=== PATIENT | male | born 1985 | race Caucasian/White ===

== ENCOUNTER 2016-09-21 22:20 | Emergency (ER) | payer SELFPAY ==
--- NOTE | 2016-09-21 22:32 | EDM.PDOC ---
ED HPI GENERAL MEDICAL PROBLEM - General Chief Complaint: Chest Pain Stated Complaint: CHEST PAIN Time Seen by Provider: 09/21/16 22:31 Source of Information: Reports: Patient - History of Present Illness INITIAL COMMENTS - FREE TEXT/NARRATIVE: HISTORY AND PHYSICAL: History of present illness: [] Patient presents with epigastric pain after eating hamburger helper, rated pain 3/10 not associated with diaphoresis or shortness breath no radiation to arm neck or jaw, episode lasted for approximately 15 minutes He does have significant family history with IA in his father at 18 years of age He is had a cardiac stress test within the last 3-4 years which was negative At current she is pain-free zero of 10 no fever nausea vomiting diarrhea constipation chest pain shortness breath headache dizziness palpitation no bowel or urine symptoms Review of systems: As per history of present illness and below otherwise all systems reviewed and negative. Past medical history: As per history of present illness and as reviewed below otherwise noncontributory. Surgical history: As per history of present illness and as reviewed below otherwise noncontributory. Social history: No reported history of drug or alcohol abuse. Family history: As per history of present illness and as reviewed below otherwise noncontributory. Physical exam: HEENT: Atraumatic, normocephalic, pupils reactive, negative for conjunctival pallor or scleral icterus, mucous membranes moist, throat clear, neck supple, nontender, trachea midline. Lungs: Clear to auscultation, breath sounds equal bilaterally, chest nontender. Heart: S1S2, regular, negative for clicks, rubs, or JVD. Abdomen: Soft, nondistended, nontender. Negative for masses or hepatosplenomegaly. Negative for costovertebral tenderness. Pelvis: Stable nontender. Genitourinary: Deferred. Rectal: Deferred. Extremities: Atraumatic, negative for cords or calf pain. Neurovascular unremarkable. Neuro: Awake, alert, oriented. Cranial nerves II through XII unremarkable. Cerebellum unremarkable. Motor and sensory unremarkable throughout. Exam nonfocal. Diagnostics: [] Lab as below EKG Chest one view Therapeutics: [] None Patient offered admission for observation and telemetry follow enzymes he refused Impression: [] Chest pain resolved by time of arrival Definitive disposition and diagnosis as appropriate pending reevaluation and review of above. chest Pain Score (Numeric/FACES): 7 - Related Data Allergies Allergy/AdvReac Type Severity Reaction Status Date / Time No Known Allergies Allergy Verified 09/21/16 22:27 Home Meds: Home Meds . [No Known Home Meds] 09/21/16 [History] Past Medical History - Past Health History Medical/Surgical History: Denies Medical/Surgical History Social & Family History - Tobacco Use Years of Tobacco use: 10 - Alcohol Use Days Per Week of Alcohol Use: 0 - Recreational Drug Use Recreational Drug Use: No ED ROS GENERAL - Review of Systems Review Of Systems: ROS reveals no pertinent complaints other than HPI. ED EXAM, GENERAL - Physical Exam Exam: See Below Course - Vital Signs Last Recorded V/S: Last Vital Signs Temp 36.2 C 09/21/16 22:28 Pulse 92 09/21/16 22:28 Resp 16 09/21/16 22:28 BP 143/90 H 09/21/16 22:28 Pulse Ox 96 09/21/16 22:28 - Orders/Labs/Meds Orders: Active Orders 24 hr Category Date Time Status EKG 12 Lead [EKG Documentation Completion] [RC] STAT Care 09/21/16 22:18 Ordered Chest 1V Frontal [CR] Stat Exams 09/21/16 22:31 Taken Labs: Laboratory Tests 09/21/16 09/21/16 09/21/16 Range/Units 22:39 22:39 22:39 WBC 10.33 (4.0-11.0) K/uL RBC 5.38 (4.50-5.90) M/uL Hgb 16.2 (13.0-17.0) g/dL Hct 47.1 (38.0-50.0) % MCV 87.5 (80.0-98.0) fL MCH 30.1 (27.0-32.0) pg MCHC 34.4 (31.0-37.0) g/dL RDW Std Deviation 43.3 (28.0-62.0) fl RDW Coeff of Ricarda 14 (11.0-15.0) % Plt Count 268 (150-400) K/uL MPV 8.80 (7.40-12.00) fL Neut % (Auto) 49.3 (48.0-80.0) % Lymph % (Auto) 41.0 H (16.0-40.0) % [place] % (Auto) 7.2 (0.0-15.0) % Eos % (Auto) 1.7 (0.0-7.0) % Baso % (Auto) 0.8 (0.0-1.5) % Neut # (Auto) 5.1 (1.4-5.7) K/uL Lymph # (Auto) 4.2 H (0.6-2.4) K/uL [place] # (Auto) 0.7 (0.0-0.8) K/uL Eos # (Auto) 0.2 (0.0-0.7) K/uL Baso # (Auto) 0.1 (0.0-0.1) K/uL Nucleated RBC % 0.0 /100WBC Nucleated RBCs # 0 K/uL Sodium 142 (136-146) mmol/L Potassium 4.1 (3.5-5.1) mmol/L Chloride 109 (98-110) mmol/L Carbon Dioxide 24 (21-31) mmol/L BUN 16 (6.0-23.0) mg/dL Creatinine 1.2 (0.6-1.5) mg/dL Est Cr Clr Drug Dosing 98.80 mL/min Estimated GFR (MDRD) > 60.0 ml/min Glucose 108 (60-110) mg/dL Calcium 9.0 (8.8-10.8) mg/dL Total Bilirubin 0.3 (0.1-1.5) mg/dL AST 19 (5-40) IU/L ALT 29 (8-54) IU/L Alkaline Phosphatase 99 (40-150) Troponin I < 0.10 (0.0-0.29) NG/ML Total Protein 7.0 (6.0-8.0) g/dL Albumin 4.5 (3.5-5.0) g/dL Globulin 2.5 (2.0-3.5) g/dL Albumin/Globulin Ratio 1.8 (1.3-2.8) Amylase 49 (10-90) U/L Lipase 23 (7-80) U/L Departure - Departure Time of Disposition: 23:26 Disposition: Home, Self-Care 01 Condition: good Clinical Impression: Atypical chest pain - Discharge Information Referrals: PCP,None [Primary Care Provider] - Forms: ED Department Discharge Additional Instructions: Return if symptoms persist or worsen Followup with primary care and establish with in 2 weeks [facility] - Primary [facility] [address] [place] [id number] The following information is given to patients seen in the emergency department who are being discharged to home. This information is to outline your options for follow-up care. We provide all patients seen in our emergency department with a follow-up referral. The need for follow-up, as well as the timing and circumstances, are variable depending upon the specifics of your emergency department visit. If you don't have a primary care physician on staff, we will provide you with a referral. We always advise you to contact your personal physician following an emergency department visit to inform them of the circumstance of the visit and for follow-up with them and/or the need for any referrals to a consulting specialist. The emergency department will also refer you to a specialist when appropriate. This referral assures that you have the opportunity for follow-up care with a specialist. All of these measure are taken in an effort to provide you with optimal care, which includes your follow-up. Under all circumstances we always encourage you to contact your private physician who remains a resource for coordinating your care. When calling for follow-up care, please make the office aware that this follow-up is from your recent emergency room visit. If for any reason you are refused follow-up, please contact the [facility] emergency department at and asked to speak to the emergency department charge nurse. - My Orders Last 24 Hours: My Active Orders 09/21/16 22:18 EKG 12 Lead [EKG Documentation Completion] [RC] STAT 09/21/16 22:31 Chest 1V Frontal [CR] Stat - Assessment/Plan Last 24 Hours: My Active Orders 09/21/16 22:18 EKG 12 Lead [EKG Documentation Completion] [RC] STAT 09/21/16 22:31 Chest 1V Frontal [CR] Stat
[2016-09-21 23:07] LABS: CHLORIDE,CL 109 mmol/L (98-110); SODIUM,NA 142 mmol/L (136-146)
[2016-09-21 23:38] VITALS: BP 140/84
--- NOTE | 2016-09-22 10:46 | CR ---
EXAM DATE: 09/21/16 PATIENT'S AGE: 31 Patient: REGGIE WELDON Facility: [place], [place] Site . Site : [id number] Study: XRay Chest [id number] 10:57:42 PM Ordering Physician: Doctor Mullins Final Report: INDICATION: CHEST PAIN TECHNIQUE: Chest 1 view COMPARISON: None FINDINGS: Cardiovascular and mediastinum: Heart size and vasculature are normal in caliber and appearance. Mediastinum is within normal limits. Lungs and pleural space: No focal consolidation. No sign of pleural effusion. No pneumothorax. Bones and soft tissues: No significant findings. IMPRESSION: No acute cardiopulmonary disease. Dictated by Josemanuel Jones MD @ 09/21/2016 11:16:07 PM Dictated by: Josemanuel Jones MD @ 09/21/2016 23:16:14 (Electronic Signature) Report Signed by Proxy. [facility]
== END 2016-09-21 23:36 | disposition home or self-care (01) ==
LOC: MW.ED 22:20
DX: R07.89 Other chest pain (principal)
CPT/HCPCS: 36415; 71010; 71010-26; 80053; 82150; 83690; 84484; 85025; 93005; 99283; 99285-25

== ENCOUNTER 2017-02-13 09:44 | Emergency (ER) | payer BC ==
[2017-02-13] MEDS ORDERED: HYDROmorphone 1 MG/ML Syringe IV ONE ×2 (10:08→11:05)
[2017-02-13] MEDS ORDERED: Sodium Chloride 0.9% 1,000 ML IV ONE (10:10)
--- NOTE | 2017-02-13 10:17 | EDM.PDOC ---
ED HPI GENERAL MEDICAL PROBLEM - General Chief Complaint: Back Pain or Injury Stated Complaint: BACK PAIN Time Seen by Provider: 02/13/17 09:53 Source of Information: Reports: Patient History Limitations: Reports: No Limitations - History of Present Illness INITIAL COMMENTS - FREE TEXT/NARRATIVE: HISTORY AND PHYSICAL: History of present illness: Patient is a 31-year-old male who presents to the emergency room with complaints of chronic back pain. He states he has had chronic back pain for several years. He denies any injury or trauma to be the causative factor for his back pain. He states he has doctored with multiple providers as he has these flareups. Did start to see Dr. Pola Lovelace at [facility]. An MRI was done on 01/24/17 which showed diffuse disc bulging at L4-L5 and L5-S1. He has no appointment on at [place] for steroid injection. He is currently taking diclofenac and gabapentin for pain management. States since his MRI and starting these medications his pain has not improved. Denies any new injury or trauma. Denies any urinary or fecal incontinence. Denies any chest pain, shortness of breath, fever or chills. Review of systems: As per history of present illness and below otherwise all systems reviewed and negative. Past medical history: As per history of present illness and as reviewed below otherwise noncontributory. Surgical history: As per history of present illness and as reviewed below otherwise noncontributory. Social history: No reported history of drug or alcohol abuse. Family history: As per history of present illness and as reviewed below otherwise noncontributory. Physical exam: Gen.: Nontoxic-appearing 31-year-old male. Able to speak in full sentences without shortness of breath. Alert and oriented. HEENT: Atraumatic, normocephalic, pupils reactive, negative for conjunctival pallor or scleral icterus, mucous membranes moist, throat clear, neck supple, nontender, trachea midline. Lungs: Clear to auscultation, breath sounds equal bilaterally, chest nontender. Heart: S1S2, regular, negative for clicks, rubs, or JVD. Abdomen: Soft, nondistended, nontender. Negative for masses or hepatosplenomegaly. Negative for costovertebral tenderness. Pelvis: Stable nontender. Genitourinary: Deferred. Rectal: Deferred. Back: When palpating the C-spine and back there is no obvious deformity, crepitus, step-offs. There is mild tenderness in the lumbar area with muscular tension noted. Patient is able to walk on his heels and tiptoes. Extremities: Atraumatic, negative for cords or calf pain. Neurovascular unremarkable. Neuro: Awake, alert, oriented. Cranial nerves II through XII unremarkable. Cerebellum unremarkable. Motor and sensory unremarkable throughout. Exam nonfocal. Due to the patient having a recent MRI and no new injury since this time, there is no need for additional imaging. Patient is currently taking gabapentin and diclofenac for pain management. He is aware that I am only able to provide a limited amount of pain management until his follow-up appointment on at [facility] for steroid injection. We will attempt to manage the pain through some IV medications and prescription for home. Patient voices understanding and is agreeable to plan of care. Denies any further questions at this time. Since receiving the IV medications, patient states his pain is more manageable. Agreeable for discharge and close follow-up with his primary care provider, Dr. Pola Lovelace. He will keep his follow-up appointment at [facility] for steroid injection. And take his medications as prescribed. Significant other is at bedside to drive patient home. Diagnostics: None Therapeutics: Dilaudid, Valium, IV fluid Impression: Lumbar back pain Plan: 1. Please take your medications as prescribed. Do not take these while driving or needing to be functioning at work. 2. Keep your follow-up appointment at [facility] for your steroid injection. 3. If her symptoms should worsen or new symptoms develop, please return to the emergency room as we discussed. Definitive disposition and diagnosis as appropriate pending reevaluation and review of above. Duration: Chronic (8+ years) Location: Reports: Back Left Lower Back Pain Score (Numeric/FACES): 9 - Related Data Allergies Allergy/AdvReac Type Severity Reaction Status Date / Time No Known Allergies Allergy Verified 02/13/17 10:04 Home Meds: Home Meds Diclofenac Sodium [Voltaren] 75 mg PO BID 02/13/17 [History] Gabapentin [Neurontin] 300 mg PO TID 02/13/17 [History] Past Medical History - Past Health History Medical/Surgical History: Denies Medical/Surgical History Musculoskeletal History: Reports: Other (See Below) Other Musculoskeletal History: slip disc - Infectious Disease History Infectious Disease History: Reports: Chicken Pox Social & Family History - Family History Family Medical History: Noncontributory Cardiac: Reports: CAD, Other (See Below) Other Cardiac Family History: father - Tobacco Use Smoking Status *Q: Current Every Day Smoker Years of Tobacco use: 10 Packs/Tins Daily: 1 - Caffeine Use Caffeine Use: Reports: Coffee, Soda Caffeine Use Comment: 1 cup daily - Alcohol Use Days Per Week of Alcohol Use: 0 - Recreational Drug Use Recreational Drug Use: No ED ROS GENERAL - Review of Systems Review Of Systems: ROS reveals no pertinent complaints other than HPI. Constitutional: Denies: Fever, Chills, Weakness Respiratory: Denies: Shortness of Breath Cardiovascular: Denies: Chest Pain GI/Abdominal: Denies: Abdominal Pain, Diarrhea, Nausea, Vomiting : Denies: Dysuria, Flank Pain Musculoskeletal: Reports: Back Pain Skin: Denies: Jaundice, Bruising, Rash Neurological: Reports: Numbness (Chronic numbness and tingling, years), Tingling. Denies: Confusion, Dizziness, Headache Hematologic/Lymphatic: Denies: Anemia, Easy Bleeding ED EXAM,LOWER BACK PAIN/INJURY - Physical Exam Exam: See Below (See dictation) Course - Vital Signs Last Recorded V/S: Last Vital Signs Temp 36.3 C 02/13/17 11:13 Pulse 88 02/13/17 11:13 Resp 18 02/13/17 11:13 BP 151/94 H 02/13/17 11:13 Pulse Ox 97 02/13/17 11:13 - Orders/Labs/Meds Meds: Medications Discontinued Medications Generic Name Dose Route Start Last Admin Trade Name Kathy PRN Reason Stop Dose Admin Hydrocodone Bitart/Acetaminophen 1 tab 02/13/17 11:31 Ida 325-5 Mg PO 02/13/17 11:32 ONETIME ONE Diazepam 5 mg 02/13/17 10:09 02/13/17 10:32 Valium IVPUSH 02/13/17 10:10 5 mg ONETIME ONE Administration Hydromorphone HCl 1 mg 02/13/17 10:08 02/13/17 10:31 Dilaudid IV 02/13/17 10:09 1 mg ONETIME ONE Administration Hydromorphone HCl 1 mg 02/13/17 11:05 02/13/17 11:13 Dilaudid IV 02/13/17 11:06 1 mg ONETIME ONE Administration Sodium Chloride 1,000 mls @ 999 mls/hr 02/13/17 10:10 02/13/17 10:31 Normal Saline IV 02/13/17 11:10 999 mls/hr STAT ONE Administration Departure - Departure Time of Disposition: 11:02 Disposition: Home, Self-Care 01 Clinical Impression: Lumbar back pain Qualifiers: Chronicity: chronic Back pain laterality: midline Sciatica presence: without sciatica Qualified Code(s): M54.5 - Low back pain - Discharge Information Referrals: Pola Horton MD [Primary Care Provider] - Forms: ED Department Discharge Additional Instructions: My general discharge The following information is given to patients seen in the emergency department who are being discharged to home. This information is to outline your options for follow-up care. We provide all patients seen in our emergency department with a follow-up referral. The need for follow-up, as well as the timing and circumstances, are variable depending upon the specifics of your emergency department visit. If you don't have a primary care physician on staff, we will provide you with a referral. We always advise you to contact your personal physician following an emergency department visit to inform them of the circumstance of the visit and for follow-up with them and/or the need for any referrals to a consulting specialist. The emergency department will also refer you to a specialist when appropriate. This referral assures that you have the opportunity for follow-up care with a specialist. All of these measure are taken in an effort to provide you with optimal care, which includes your follow-up. Under all circumstances we always encourage you to contact your private physician who remains a resource for coordinating your care. When calling for follow-up care, please make the office aware that this follow-up is from your recent emergency room visit. If for any reason you are refused follow-up, please contact the [facility] Emergency Department at and asked to speak to the emergency department charge nurse. [facility] Specialty Care - Pain Management [address] [place] [id number] 1. Please take your medications as prescribed. Do not take these while driving or needing to be functioning at work. 2. Keep your follow-up appointment at [facility] for your steroid injection. Please ask Dr. Horton about a referral to Dr. Malhotra for pain management. 3. If your symptoms should worsen or new symptoms develop, please return to the emergency room as we discussed.
[2017-02-13] MEDS ORDERED: Acetaminophen/HYDROcodone 325-5 MG Tab PO ONE (11:31)
[2017-02-13 11:50] VITALS: BP 157/86
== END 2017-02-13 11:56 | disposition home or self-care (01) ==
LOC: MW.ED 09:44
DX: M54.5 Low back pain (principal); F17.210 Nicotine dependence, cigarettes, uncomplicated
CPT/HCPCS: 96361; 96374; 96375; 96376; 99283; A9270; J1170; J3360; J7040

== ENCOUNTER 2018-07-19 15:16 | Emergency (ER) | payer BC ==
--- NOTE | 2018-07-19 15:27 | EDM.PDOC ---
ED HPI GENERAL MEDICAL PROBLEM - General Chief Complaint: General Stated Complaint: heartburn and headache Time Seen by Provider: 07/19/18 15:17 Source of Information: Reports: Patient History Limitations: Reports: No Limitations - History of Present Illness INITIAL COMMENTS - FREE TEXT/NARRATIVE: HISTORY AND PHYSICAL: History of present illness: Patient is a 32-year-old male who presents to the emergency room with complaints of a posterior scalp migraine headache with light and noise sensitivity. He states he has used multiple [id number] products without any relief. He also has a sensation of heartburn which starts at the esophagus and goes down to the upper epigastrium. Has been using Maalox and Tums without any relief as well. Patient denies any fever, chills, change in vision, syncope or near syncope. Denies any chest pain, shortness of breath or cough. Denies any abdominal pain, nausea, vomiting, diarrhea, constipation or dysuria. Has not noted any blood in urine or stool. Patient has been eating and drinking appropriately. Review of systems: As per history of present illness and below otherwise all systems reviewed and negative. Past medical history: As per history of present illness and as reviewed below otherwise noncontributory. Surgical history: As per history of present illness and as reviewed below otherwise noncontributory. Social history: See social history for further information Family history: As per history of present illness and as reviewed below otherwise noncontributory. Physical exam: General: Well-developed and well-nourished 32-year-old male. Alert and oriented. Nontoxic appearing and in no acute distress. HEENT: Atraumatic, normocephalic, pupils equal and reactive bilaterally, negative for conjunctival pallor or scleral icterus, mucous membranes moist, TMs normal bilaterally, throat clear, neck supple, nontender, trachea midline. No drooling or trismus noted. No meningeal signs. No hot potato voice noted. Lungs: Clear to auscultation, breath sounds equal bilaterally, chest nontender. Heart: S1S2, regular rate and rhythm without overt murmur Abdomen: Soft, nondistended, nontender. Negative for masses or hepatosplenomegaly. Negative for costovertebral tenderness. Pelvis: Stable nontender. Genitourinary: Deferred. Rectal: Deferred. Skin: Intact, warm, dry. No lesions or rashes noted. Extremities: Atraumatic, moves all per self. Neurovascular unremarkable. Neuro: Awake, alert, oriented. Cranial nerves II through XII unremarkable. Cerebellum unremarkable. Motor and sensory unremarkable throughout. Exam nonfocal. Notes: Patient has an allergy to Toradol. His headache does sound like a tension migraine headache. We'll give him IV fluid and medication with education. Routine lab work will be done. Patient does have some improvement with the medications. Lab work is unremarkable. Supportive care measures were reviewed and discussed. Voices understanding and is agreeable to plan of care. Denies any further questions or concerns at this time. Diagnostics: CBC, CMP, H.pylori Therapeutics: IV fluid, Zofran, Toradol, Benadryl, Reglan Prescription: Omeprazole (#14) Impression: Tension Headache GERD Plan: 1. Please take the remainder of the day to rest in a dark quiet room. No driving for the rest of the evening. 2. May use Tylenol and/or ibuprofen as needed for pain management. Take the omeprazole once daily over the next 2 weeks. 3. Please follow-up with your primary care provider as we discussed. Return to the ED as needed and as discussed. Definitive disposition and diagnosis as appropriate pending reevaluation and review of above. headache Pain Score (Numeric/FACES): 9 heartburn Pain Score (Numeric/FACES): 8 - Related Data Allergies Allergy/AdvReac Type Severity Reaction Status Date / Time ketorolac Allergy Seizure Verified 07/19/18 15:57 Home Meds: Home Meds . [No Known Home Meds] 07/19/18 [History] Past Medical History - Past Health History Medical/Surgical History: Denies Medical/Surgical History Musculoskeletal History: Reports: Other (See Below) Other Musculoskeletal History: slip disc - Infectious Disease History Infectious Disease History: Reports: Chicken Pox Social & Family History - Family History Family Medical History: Noncontributory Cardiac: Reports: CAD, Other (See Below) Other Cardiac Family History: father - Caffeine Use Caffeine Use: Reports: Coffee, Soda Caffeine Use Comment: 1 cup daily ED ROS GENERAL - Review of Systems Review Of Systems: ROS reveals no pertinent complaints other than HPI. ED EXAM, GENERAL - Physical Exam Exam: See Below (See dictation) Course - Vital Signs Last Recorded V/S: Last Vital Signs Temp 96.9 F 07/19/18 15:26 Pulse 89 03/28/19 15:26 Resp 20 07/19/18 15:26 BP 149/97 H 07/19/18 15:26 Pulse Ox 97 07/19/18 15:26 - Orders/Labs/Meds Labs: Laboratory Tests 07/19/18 07/19/18 07/19/18 Range/Units 16:22 16:22 16:22 WBC 11.26 H (4.0-11.0) K/uL RBC 5.33 (4.50-5.90) M/uL Hgb 16.3 (13.0-17.0) g/dL Hct 46.7 (38.0-50.0) % MCV 87.6 (80.0-98.0) fL MCH 30.6 (27.0-32.0) pg MCHC 34.9 (31.0-37.0) g/dL RDW Std Deviation 44.6 (28.0-62.0) fl RDW Coeff of Ricarda 14 (11.0-15.0) % Plt Count 250 (150-400) K/uL MPV 8.90 (7.40-12.00) fL Neut % (Auto) 63.1 (48.0-80.0) % Lymph % (Auto) 26.9 (16.0-40.0) % Throckmorton % (Auto) 7.7 (0.0-15.0) % Eos % (Auto) 1.8 (0.0-7.0) % Baso % (Auto) 0.5 (0.0-1.5) % Neut # (Auto) 7.1 H (1.4-5.7) K/uL Lymph # (Auto) 3.0 H (0.6-2.4) K/uL Throckmorton # (Auto) 0.9 H (0.0-0.8) K/uL Eos # (Auto) 0.2 (0.0-0.7) K/uL Baso # (Auto) 0.1 (0.0-0.1) K/uL Nucleated RBC % 0.0 /100WBC Nucleated RBCs # 0 K/uL Sodium 142 (136-148) mmol/L Potassium 4.0 (3.5-5.1) mmol/L Chloride 106 (98-107) mmol/L Carbon Dioxide 28.7 (21.0-32.0) mmol/L BUN 12 (7.0-18.0) mg/dL Creatinine 0.9 (0.8-1.3) mg/dL Est Cr Clr Drug Dosing 130.53 mL/min Estimated GFR (MDRD) > 60.0 ml/min Glucose 103 (74-106) mg/dL Calcium 8.8 (8.5-10.1) mg/dL Total Bilirubin 0.2 (0.2-1.0) mg/dL AST 21 (15-37) IU/L ALT 48 (14-63) IU/L Alkaline Phosphatase 95 (46-116) U/L Total Protein 6.4 (6.4-8.2) g/dL Albumin 3.6 (3.4-5.0) g/dL Globulin 2.8 (2.6-4.0) g/dL Albumin/Globulin Ratio 1.3 (0.9-1.6) H. pylori IgG Antibody NEGATIVE (NEG) Meds: Medications Discontinued Medications Generic Name Dose Route Start Last Admin Trade Name Freq PRN Reason Stop Dose Admin Al Hydroxide/Mg Hydroxide 15 0 ml 07/19/18 15:38 07/19/18 16:00 ml/ Lidocaine HCl 5 ml PO 07/19/18 15:39 20 each ONETIME ONE Administration Diphenhydramine HCl 50 mg 07/19/18 15:33 07/19/18 16:08 Benadryl IVPUSH 07/19/18 15:34 Not Given ONETIME ONE Sodium Chloride 1,000 mls @ 999 mls/hr 07/19/18 15:33 07/19/18 16:02 Normal Saline IV 07/19/18 16:33 999 mls/hr STAT ONE Administration Ketorolac Tromethamine 30 mg 07/19/18 15:33 07/19/18 16:08 Toradol IVPUSH 07/19/18 15:34 Not Given ONETIME ONE Lorazepam 1 mg 07/19/18 15:59 07/19/18 16:06 Ativan IVPUSH 07/19/18 16:00 1 mg ONETIME ONE Administration Metoclopramide HCl 10 mg 07/19/18 15:33 07/19/18 16:08 Reglan IV 07/19/18 15:34 Not Given ONETIME ONE Ondansetron HCl 4 mg 07/19/18 15:33 07/19/18 16:06 Zofran IVPUSH 07/19/18 15:34 4 mg ONETIME ONE Administration Departure - Departure Time of Disposition: 16:58 Disposition: Home, Self-Care 01 Clinical Impression: Tension headache GERD (gastroesophageal reflux disease) Qualifiers: Esophagitis presence: esophagitis presence not specified Qualified Code(s): K21.9 - Gastro-esophageal reflux disease without esophagitis - Discharge Information Instructions: Tension Headache, Adult, [id number], Gastroesophageal Reflux Disease, Adult, [id number] Referrals: PCP,Unknown [Primary Care Provider] - Forms: ED Department Discharge Additional Instructions: The following information is given to patients seen in the emergency department who are being discharged to home. This information is to outline your options for follow-up care. We provide all patients seen in our emergency department with a follow-up referral. The need for follow-up, as well as the timing and circumstances, are variable depending upon the specifics of your emergency department visit. If you don't have a primary care physician on staff, we will provide you with a referral. We always advise you to contact your personal physician following an emergency department visit to inform them of the circumstance of the visit and for follow-up with them and/or the need for any referrals to a consulting specialist. The emergency department will also refer you to a specialist when appropriate. This referral assures that you have the opportunity for follow-up care with a specialist. All of these measure are taken in an effort to provide you with optimal care, which includes your follow-up. Under all circumstances we always encourage you to contact your private physician who remains a resource for coordinating your care. When calling for follow-up care, please make the office aware that this follow-up is from your recent emergency room visit. If for any reason you are refused follow-up, please contact the [facility] Emergency Department at and asked to speak to the emergency department charge nurse. [facility] [address] [place] [id number] [address] [place] [address] [place] [address] 1. Please take the remainder of the day to rest in a dark quiet room. No driving for the rest of the evening. 2. May use Tylenol and/or ibuprofen as needed for pain management. Take the omeprazole once daily over the next 2 weeks. 3. Please follow-up with your primary care provider as we discussed. Return to the ED as needed and as discussed.
[2018-07-19 15:28] VITALS: BP 149/97
[2018-07-19] MEDS ORDERED: Ketorolac 30 MG/ML SDV IVPUSH ONE (15:33)
[2018-07-19] MEDS ORDERED: Sodium Chloride 0.9% 1,000 ML IV ONE (15:33)
[2018-07-19] MEDS ORDERED: Ondansetron 4 MG/2 ML SDV IVPUSH ONE (15:33)
[2018-07-19] MEDS ORDERED: Metoclopramide 10 MG/2 ML SDV IV ONE (15:33)
[2018-07-19] MEDS ORDERED: diphenhydrAMINE 50 MG/ML SDV IVPUSH ONE (15:33)
[2018-07-19] MEDS ORDERED: Alum Hydrox/Mag Hydrox/Simeth 15 ML, Lidocaine 2% 5 ML PO ONE ×2 (15:38)
[2018-07-19] MEDS ORDERED: LORazepam 2 MG/ML SDV IVPUSH ONE (15:59)
[2018-07-19 16:51] LABS: CHLORIDE,CL 106 mmol/L (98-107); SODIUM,NA 142 mmol/L (136-148)
== END 2018-07-19 17:10 | disposition home or self-care (01) ==
LOC: MW.ED 15:16
DX: G44.209 Tension-type headache, unspecified, not intractable (principal); K21.9 Gastro-esophageal reflux disease without esophagitis; Z88.6 Allergy status to analgesic agent
CPT/HCPCS: 36415; 80053; 85025; 86677; 96361; 96374; 96375; 99284; A9270; J2060; J2405; J7040

== ENCOUNTER 2018-07-21 00:45 | Emergency (ER) | payer BC ==
--- NOTE | 2018-07-21 00:54 | EDM.PDOC ---
ED HPI GENERAL MEDICAL PROBLEM - General Chief Complaint: Chest Pain Stated Complaint: CHEST PAIN Time Seen by Provider: 07/21/18 00:52 - History of Present Illness INITIAL COMMENTS - FREE TEXT/NARRATIVE: HISTORY AND PHYSICAL: History of present illness: Patient 32-year-old white male was seen recently for chest discomfort and heartburn returns tonight with chest discomfort is no associated shortness of breath palpitations diaphoresis nausea vomiting or other complaints. Review of systems: As per history of present illness and below otherwise all systems reviewed and negative. Past medical history: As per history of present illness and as reviewed below otherwise noncontributory. Surgical history: As per history of present illness and as reviewed below otherwise noncontributory. Social history: No reported history of drug or alcohol abuse. Family history: As per history of present illness and as reviewed below otherwise noncontributory. Physical exam: HEENT: Atraumatic, normocephalic, pupils reactive, negative for conjunctival pallor or scleral icterus, mucous membranes moist, throat clear, neck supple, nontender, trachea midline. Lungs: Clear to auscultation, breath sounds equal bilaterally, chest nontender. Heart: S1S2, regular, negative for clicks, rubs, or JVD. Abdomen: Soft, nondistended, nontender. Negative for masses or hepatosplenomegaly. Negative for costovertebral tenderness. Pelvis: Stable nontender. Genitourinary: Deferred. Rectal: Deferred. Extremities: Atraumatic, negative for cords or calf pain. Neurovascular unremarkable. Neuro: Awake, alert, oriented. Cranial nerves II through XII unremarkable. Cerebellum unremarkable. Motor and sensory unremarkable throughout. Exam nonfocal. Diagnostics: EKG Therapeutics: None Impression: #1 atypical chest pain Definitive disposition and diagnosis as appropriate pending reevaluation and review of above. - Related Data Allergies Allergy/AdvReac Type Severity Reaction Status Date / Time ketorolac Allergy Seizure Verified 07/21/18 00:50 Home Meds: Home Meds . [No Known Home Meds] 07/19/18 [History] Past Medical History - Past Health History Medical/Surgical History: Denies Medical/Surgical History Musculoskeletal History: Reports: Other (See Below) Other Musculoskeletal History: slip disc - Infectious Disease History Infectious Disease History: Reports: Chicken Pox Social & Family History - Family History Family Medical History: Noncontributory Cardiac: Reports: CAD, Other (See Below) Other Cardiac Family History: father - Caffeine Use Caffeine Use: Reports: Coffee, Soda Caffeine Use Comment: 1 cup daily ED ROS GENERAL - Review of Systems Review Of Systems: ROS reveals no pertinent complaints other than HPI. ED EXAM, GENERAL - Physical Exam Exam: See Below (See dictation) Departure - Departure Time of Disposition: 00:53 Disposition: Home, Self-Care 01 Condition: Good Clinical Impression: Atypical chest pain - Discharge Information Referrals: PCP,None [Primary Care Provider] - Additional Instructions: The following information is given to patients seen in the emergency department who are being discharged to home. This information is to outline your options for follow-up care. We provide all patients seen in our emergency department with a follow-up referral. The need for follow-up, as well as the timing and circumstances, are variable depending upon the specifics of your emergency department visit. If you don't have a primary care physician on staff, we will provide you with a referral. We always advise you to contact your personal physician following an emergency department visit to inform them of the circumstance of the visit and for follow-up with them and/or the need for any referrals to a consulting specialist. The emergency department will also refer you to a specialist when appropriate. This referral assures that you have the opportunity for followup care with a specialist. All of these measure are taken in an effort to provide you with optimal care, which includes your followup. Under all circumstances we always encourage you to contact your private physician who remains a resource for coordinating your care. When calling for followup care, please make the office aware that this follow-up is from your recent emergency room visit. If for any reason you are refused follow-up, please contact the [facility] emergency department at and asked to speak to the emergency department charge nurse. Specialty Care - General Surgery Professional [facility] [address] [place] [address], [address] [place] [address] Primary Care [address] [place] [id number] Follow-up primary care in Gen. surgery as discussed
[2018-07-21] MEDS ORDERED: Alum Hydrox/Mag Hydrox/Simeth 15 ML, Lidocaine 2% 5 ML PO ONE ×2 (01:06)
[2018-07-21 01:24] VITALS: BP 142/97
== END 2018-07-21 01:20 | disposition home or self-care (01) ==
LOC: MW.ED 00:45
DX: R07.89 Other chest pain (principal)
CPT/HCPCS: 93005; 99284; A9270

== ENCOUNTER 2018-07-24 08:33 | Emergency (ER) | payer BC ==
[2018-07-24] MEDS ORDERED: Aspirin 81 MG Tab.Chew PO ONE (09:06)
[2018-07-24] MEDS ORDERED: Sodium Chloride 0.9% 2.5 ML Syringe FLUSH PRN (09:07)
[2018-07-24] MEDS ORDERED: Sodium Chloride 0.9% 10 ML Syringe FLUSH PRN (09:07)
--- NOTE | 2018-07-24 09:14 | EDM.PDOC ---
ED HPI GENERAL MEDICAL PROBLEM - General Chief Complaint: Cardiovascular Problem Stated Complaint: LAB RECHECK Time Seen by Provider: 07/24/18 08:40 Source of Information: Reports: Patient History Limitations: Reports: No Limitations - History of Present Illness INITIAL COMMENTS - FREE TEXT/NARRATIVE: History of present illness: []Patient presents this morning after following up with a primary care doctor for chest pain and was immediately sent to the emergency room. He does not have any chest pain, shortness of breath or epigastric pain at this time. Patient was seen on July 19 with epigastric pain chart stable. He was seen again on the with a normal EKG and went to [place] where he was admitted to the ER and had positive troponins. He declined admission and signed out AMA after the second positive troponin came back and admission was recommended. Patient has no discomfort at this time Review of systems: As per history of present illness and below otherwise all systems reviewed and negative. Past medical history: As per history of present illness and as reviewed below otherwise noncontributory. Surgical history: As per history of present illness and as reviewed below otherwise noncontributory. Social history: No reported history of drug or alcohol abuse. Family history: As per history of present illness and as reviewed below otherwise noncontributory. Physical exam: General: Well developed, well nourished in NAD HEENT: Atraumatic, normocephalic, pupils reactive, negative for conjunctival pallor or scleral icterus, mucous membranes moist, throat clear, neck supple, nontender, trachea midline. Lungs: Clear to auscultation, no rales or rhonchi breath sounds equal bilaterally, chest nontender. Heart: S1S2, regular, negative for clicks, rubs, or JVD. Abdomen: NABS, Soft, nondistended, nontender. Negative for masses or hepatosplenomegaly. Negative for costovertebral tenderness. Pelvis: Stable nontender. Genitourinary: Deferred. Rectal: Deferred. Extremities: Atraumatic, negative for cords or calf pain. Neurovascular unremarkable. Neuro: Awake, alert, oriented. Cranial nerves II through XII unremarkable. Cerebellum unremarkable. Motor and sensory unremarkable throughout. Exam nonfocal. Skin:warm and dry Diagnostics: EKG, CBC, chemistry, troponin, chest x-ray Therapeutics: Aspirin held because patient took 325 mg this morning, blood pressure and pulse stable, Plavix given by mouth ED Course: Stable 10:[address] Ivey in the emergency room at not except as patient if Dr. Daly recommend he return for admission and further workup. Impression: subacute RI Prescriptions: None Plan: Transfer to [facility] for admission by ground Definitive disposition and diagnosis as appropriate pending reevaluation and review of above. back Pain Score (Numeric/FACES): 2 - Related Data Allergies Allergy/AdvReac Type Severity Reaction Status Date / Time ketorolac Allergy Seizure Verified 07/24/18 08:39 Home Meds: Home Meds Aspirin 325 mg PO DAILY 07/24/18 [History] Metoprolol Tartrate [Lopressor] 25 mg PO Q12HR 07/24/18 [History] Varenicline Tartrate [Chantix] 1 mg PO DAILY 07/24/18 [History] Past Medical History - Past Health History Medical/Surgical History: Denies Medical/Surgical History Cardiovascular History: Reports: Hypertension Musculoskeletal History: Reports: Other (See Below) Other Musculoskeletal History: slip disc - Infectious Disease History Infectious Disease History: Reports: None - Past Surgical History HEENT Surgical History: Reports: Oral Surgery Social & Family History - Family History Family Medical History: Noncontributory Cardiac: Reports: CAD, Other (See Below) Other Cardiac Family History: father - Tobacco Use Smoking Status *Q: Current Every Day Smoker Years of Tobacco use: 8 Packs/Tins Daily: 0.3 - Caffeine Use Caffeine Use: Reports: None Caffeine Use Comment: 1 cup daily - Recreational Drug Use Recreational Drug Use: No ED ROS GENERAL - Review of Systems Review Of Systems: ROS reveals no pertinent complaints other than HPI. ED EXAM, GENERAL - Physical Exam Exam: See Below (See history of present illness) Course - Vital Signs Last Recorded V/S: Last Vital Signs Temp 97.2 F 07/24/18 08:40 Pulse 78 07/24/18 09:24 Resp 18 07/24/18 09:24 BP 123/77 07/24/18 09:24 Pulse Ox 97 07/24/18 09:24 - Orders/Labs/Meds Orders: Active Orders 24 hr Category Date Time Status Cardiac Monitoring [RC] . DIRECTED Care 07/24/18 09:06 Active EKG Documentation Completion [RC] STAT Care 07/24/18 09:06 Active Sodium Chloride 0.9% [Saline Flush] Med 07/24/18 09:07 Active 10 ml FLUSH ASDIRECTED PRN Sodium Chloride 0.9% [Saline Flush] Med 07/24/18 09:07 Active 2.5 ml FLUSH ASDIRECTED PRN Saline Lock Insert [OM.PC] Stat Oth 07/24/18 09:06 Ordered Medication Orders Sodium Chloride (Saline Flush) 10 ml FLUSH ASDIRECTED PRN PRN Reason: Keep Vein Open Sodium Chloride (Saline Flush) 2.5 ml FLUSH ASDIRECTED PRN PRN Reason: Keep Vein Open Labs: Laboratory Tests 07/24/18 07/24/18 07/24/18 Range/Units 09:15 09:15 09:15 WBC 12.06 H (4.0-11.0) K/uL RBC 5.64 (4.50-5.90) M/uL Hgb 17.2 H (13.0-17.0) g/dL Hct 48.9 (38.0-50.0) % MCV 86.7 (80.0-98.0) fL MCH 30.5 (27.0-32.0) pg MCHC 35.2 (31.0-37.0) g/dL RDW Std Deviation 43.1 (28.0-62.0) fl RDW Coeff of Ricarda 14 (11.0-15.0) % Plt Count 296 (150-400) K/uL MPV 8.80 (7.40-12.00) fL Neut % (Auto) 63.3 (48.0-80.0) % Lymph % (Auto) 25.5 (16.0-40.0) % Desha % (Auto) 9.4 (0.0-15.0) % Eos % (Auto) 1.2 (0.0-7.0) % Baso % (Auto) 0.6 (0.0-1.5) % Neut # (Auto) 7.6 H (1.4-5.7) K/uL Lymph # (Auto) 3.1 H (0.6-2.4) K/uL Desha # (Auto) 1.1 H (0.0-0.8) K/uL Eos # (Auto) 0.2 (0.0-0.7) K/uL Baso # (Auto) 0.1 (0.0-0.1) K/uL Nucleated RBC % 0.0 /100WBC Nucleated RBCs # 0 K/uL Sodium 141 (136-148) mmol/L Potassium 4.0 (3.5-5.1) mmol/L Chloride 104 (98-107) mmol/L Carbon Dioxide 28.0 (21.0-32.0) mmol/L BUN 17 (7.0-18.0) mg/dL Creatinine 1.2 (0.8-1.3) mg/dL Est Cr Clr Drug Dosing 97.90 mL/min Estimated GFR (MDRD) > 60.0 ml/min Glucose 89 (74-106) mg/dL Calcium 9.1 (8.5-10.1) mg/dL Total Bilirubin 0.5 (0.2-1.0) mg/dL AST 22 (15-37) IU/L ALT 59 (14-63) IU/L Alkaline Phosphatase 116 (46-116) U/L Troponin I 1.448 H* (0.000-0.056) ng/mL Total Protein 7.3 (6.4-8.2) g/dL Albumin 3.9 (3.4-5.0) g/dL Globulin 3.4 (2.6-4.0) g/dL Albumin/Globulin Ratio 1.1 (0.9-1.6) Lipase 79 (73-393) U/L Meds: Medications Generic Name Dose Route Start Last Admin Trade Name Freq PRN Reason Stop Dose Admin Sodium Chloride 10 ml 07/24/18 09:07 Saline Flush FLUSH ASDIRECTED PRN Keep Vein Open Sodium Chloride 2.5 ml 07/24/18 09:07 Saline Flush FLUSH ASDIRECTED PRN Keep Vein Open Discontinued Medications Generic Name Dose Route Start Last Admin Trade Name Freq PRN Reason Stop Dose Admin Clopidogrel Bisulfate 75 mg 07/24/18 10:29 Plavix PO 07/24/18 10:30 ONETIME ONE Metoprolol Tartrate 5 mg 07/24/18 09:07 Lopressor IVPUSH 07/24/18 09:08 ONETIME ONE Ondansetron HCl 4 mg 07/24/18 09:18 07/24/18 09:21 Zofran IVPUSH 07/24/18 09:19 4 mg ONETIME ONE Administration Ondansetron HCl Confirm 07/24/18 09:18 07/24/18 09:26 Zofran Administered 07/24/18 09:19 Not Given Dose 4 mg .ROUTE .STK-MED ONE Departure - Departure Time of Disposition: 10:39 Disposition: DC/Tfer to Acute Hospital 02 Reason for Transfer *Q: Other (subacute mi) Condition: Good Clinical Impression: Acute RI inferior subsequent episode care Referrals: Pola Horton MD [Primary Care Provider] - Forms: ED Department Discharge - My Orders Last 24 Hours: My Active Orders 07/24/18 09:06 Cardiac Monitoring [RC] . DIRECTED EKG Documentation Completion [RC] STAT Saline Lock Insert [OM.PC] Stat 07/24/18 09:07 Sodium Chloride 0.9% [Saline Flush] 10 ml FLUSH ASDIRECTED PRN Sodium Chloride 0.9% [Saline Flush] 2.5 ml FLUSH ASDIRECTED PRN - Assessment/Plan Last 24 Hours: My Active Orders 07/24/18 09:06 Cardiac Monitoring [RC] . DIRECTED EKG Documentation Completion [RC] STAT Saline Lock Insert [OM.PC] Stat 07/24/18 09:07 Sodium Chloride 0.9% [Saline Flush] 10 ml FLUSH ASDIRECTED PRN Sodium Chloride 0.9% [Saline Flush] 2.5 ml FLUSH ASDIRECTED PRN
[2018-07-24] MEDS ORDERED: Ondansetron 4 MG/2 ML SDV IVPUSH ONE (09:18)
[2018-07-24] MEDS ORDERED: Ondansetron 4 MG/2 ML SDV ONE (09:18)
[2018-07-24] MEDS: Metoprolol Tartrate 5 MG/5 ML SDV IVPUSH ONE ×2 (09:21→11:00)
[2018-07-24 10:00] LABS: CHLORIDE,CL 104 mmol/L (98-107); SODIUM,NA 141 mmol/L (136-148)
--- NOTE | 2018-07-24 10:03 | CR ---
EXAMINATION: Portable chest radiograph. HISTORY: Shortness of breath. FINDINGS: The trachea is midline. The cardiomediastinal silhouette is within normal limits. No pulmonary infiltrates, effusions or pneumothorax. Osseous structures appear unremarkable. IMPRESSION: No acute cardiopulmonary process.
[2018-07-24] MEDS ORDERED: Clopidogrel 75 MG Tab PO ONE (10:29)
[2018-07-24] MEDS ORDERED: Clopidogrel 75 MG Tab ONE (10:34)
[2018-07-24 12:42] VITALS: BP 121/64
== END 2018-07-24 12:34 ==
LOC: MW.ED 08:33
DX: I22.1 Subsequent ST elevation (STEMI) myocardial infarction of inferior wall (principal); I21.9 Acute myocardial infarction, unspecified; I10 Essential (primary) hypertension; F17.210 Nicotine dependence, cigarettes, uncomplicated; Z88.8 Allergy status to other drugs, medicaments and biological substances; Z79.82 Long term (current) use of aspirin; Z79.899 Other long term (current) drug therapy
CPT/HCPCS: 36415; 71045; 80053; 83690; 84484; 85025; 93005; 96374; 99285; A9270; J2405; 99284; J3490

== ENCOUNTER 2021-01-15 12:03 | Emergency (ER) | payer BC | END 2021-01-15 12:29 | disposition left against medical advice (07) | LOC: MW.ED 12:03 | DX: Z53.21 Procedure and treatment not carried out due to patient leaving prior to being seen by health care provider (principal) ==

== ENCOUNTER 2022-09-21 16:46 | Emergency (ER) | payer BC ==
[2022-09-21 16:58] VITALS: BP 143/88; PULSE 86
== END 2022-09-21 17:45 | disposition home or self-care (01) ==
LOC: MW.ED 16:46
DX: K04.7 Periapical abscess without sinus (principal); I10 Essential (primary) hypertension; Z88.5 Allergy status to narcotic agent; Z79.899 Other long term (current) drug therapy
CPT/HCPCS: 99282; 99283

== ENCOUNTER 2023-02-27 10:44 | Emergency (ER) | payer BC ==
[2023-02-27] MEDS ORDERED: Sodium Chloride 0.9% 1,000 ML IV ONE (11:30)
[2023-02-27] MEDS ORDERED: Ondansetron 4 MG/2 ML SDV IVPUSH ONE (11:34)
[2023-02-27 11:38] LABS: BASOPHILS ABSOLUTE AUTO 0.08 K/uL (0.00-0.20); BASOPHILS PERCENT AUTO 0.7 % (0.0-1.0); EOSINOPHILS ABSOLUTE AUTO 0.15 K/uL (0.00-0.45); EOSINOPHILS PERCENT AUTO 1.3 % (0.0-6.0); HEMOGLOBIN 17.5 g/dL (14.0-18.0); IMMATURE GRAN ABSOLUTE AUTO 0.03 K/uL (0.00-0.05); IMMATURE GRAN PERCENT AUTO 0.3 % (0.0-0.4); LYMPHOCYTES ABSOLUTE AUTO 3.18 K/uL (1.00-4.80); LYMPHOCYTES PERCENT AUTO 26.7 % (24.0-44.0); MEAN CORPUSCULAR HEMOGLOBIN 29.5 pg (28.0-32.0); MEAN CORPUSCULAR VOLUME 84.2 fL (83.0-99.0); MEAN PLATELET VOLUME 8.5 fL (9.4-12.4); MONOCYTES ABSOLUTE AUTO 0.79 K/uL (0.00-0.80); MONOCYTES PERCENT AUTO 6.6 % (0.0-8.0); NEUTROPHILS ABSOLUTE AUTO 7.67 K/uL (1.80-7.70); NEUTROPHILS PERCENT AUTO 64.4 % (41.0-71.0); PLATELET COUNT,PLT 298 K/uL (150-400); RED BLOOD CELL COUNT 5.94 M/uL (4.52-5.90)
[2023-02-27 11:55] LABS: A/G RATIO 1.2 (0.9-1.6); ALBUMIN 4.2 g/dL (3.4-5.0); BILIRUBIN TOTAL 0.4 mg/dL (0.2-1.0); CALCIUM 9.1 mg/dL (8.5-10.1); CREATININE 1.1 mg/dL (0.8-1.3); EST CRCL DRUG DOSING (CG) 101.9 mL/min; MAGNESIUM 1.9 mg/dL (1.8-2.4); POTASSIUM,K 4.2 mmol/L (3.5-5.1); PROTEIN TOTAL,TP 7.6 g/dL (6.4-8.2)
[2023-02-27 12:20] LABS: CORONAVIRUS COVID-19 NAA NEGATIVE (NEGATIVE); INFLUENZA A NAA NEGATIVE (NEGATIVE); INFLUENZA B NAA NEGATIVE (NEGATIVE); RESPIRATORY SYNCYTIAL VIR NAA NEGATIVE (NEGATIVE)
[2023-02-27 12:53] VITALS: BP 161/95
[2023-02-27 12:53] LABS: APPEARANCE,URINE CLEAR; BILIRUBIN,URINE NEGATIVE (NEGATIVE); COLOR,URINE YELLOW; GLUCOSE,URINE NEGATIVE (NEGATIVE); KETONES,URINE NEGATIVE (NEGATIVE); LEUKOCYTE ESTERASE,URINE NEGATIVE (NEGATIVE); NITRITE,URINE NEGATIVE (NEGATIVE); OCCULT BLOOD,URINE TRACE-INTACT (NEGATIVE); PROTEIN,URINE NEGATIVE (NEGATIVE); UROBILINOGEN,URINE 0.2 EU/dL (<2.0)
[2023-02-27 13:06] LABS: BACTERIA,URINE FEW (NEGATIVE); EPITHELIAL CELLS,URINE RARE (NONE-FEW); RBC,URINE 0-1 (0-2/HPF); WBC,URINE 0-2 (0-5/HPF)
[2023-02-27 13:42] VITALS: PULSE 63
== END 2023-02-27 13:42 | disposition home or self-care (01) ==
LOC: MW.ED 10:44
DX: K52.9 Noninfective gastroenteritis and colitis, unspecified (principal); I10 Essential (primary) hypertension; I25.2 Old myocardial infarction; E78.00 Pure hypercholesterolemia, unspecified; Z20.822 Contact with and (suspected) exposure to COVID-19; Z88.5 Allergy status to narcotic agent; Z88.6 Allergy status to analgesic agent; Z79.82 Long term (current) use of aspirin; Z79.899 Other long term (current) drug therapy; Z79.02 Long term (current) use of antithrombotics/antiplatelets
CPT/HCPCS: 0241U; 36415; 80053; 81001; 82550; 83735; 85025; 96361; 96374; 99284; J2405; J7030

== ENCOUNTER 2024-01-06 16:59 | Emergency (ER) | payer BC ==
[2024-01-06] MEDS: Doxycycline 100 MG Cap PO ONE (17:42)
[2024-01-06 17:53] VITALS: BP 141/87; PULSE 84
== END 2024-01-06 17:53 | disposition home or self-care (01) ==
LOC: MW.ED 16:59
DX: L02.415 Cutaneous abscess of right lower limb (principal); I10 Essential (primary) hypertension; I25.2 Old myocardial infarction; E78.00 Pure hypercholesterolemia, unspecified; F17.210 Nicotine dependence, cigarettes, uncomplicated; Z88.5 Allergy status to narcotic agent; Z79.82 Long term (current) use of aspirin; Z79.899 Other long term (current) drug therapy; Z75.8 Other problems related to medical facilities and other health care
CPT/HCPCS: 99281; A9270; 99283

== ENCOUNTER 2024-05-17 15:48 | Emergency (ER) | payer BC ==
[2024-05-17 16:12] LABS: BASOPHILS ABSOLUTE AUTO 0.08 K/uL (0.00-0.20); BASOPHILS PERCENT AUTO 0.9 % (0.0-1.0); EOSINOPHILS ABSOLUTE AUTO 0.18 K/uL (0.00-0.45); EOSINOPHILS PERCENT AUTO 1.9 % (0.0-6.0); HEMATOCRIT 49.2 % (42.0-52.0); HEMOGLOBIN 16.5 g/dL (14.0-18.0); IMMATURE GRAN ABSOLUTE AUTO 0.03 K/uL (0.00-0.05); IMMATURE GRAN PERCENT AUTO 0.3 % (0.0-0.4); LYMPHOCYTES ABSOLUTE AUTO 3.23 K/uL (1.00-4.80); LYMPHOCYTES PERCENT AUTO 34.4 % (24.0-44.0); MEAN CORPUSCULAR HEMOGLOBIN 28.7 pg (28.0-32.0); MEAN CORPUSCULAR HGB CONC 33.5 g/dL (32.0-36.0); MEAN CORPUSCULAR VOLUME 85.6 fL (83.0-99.0); MEAN PLATELET VOLUME 8.4 fL (9.4-12.4); MONOCYTES ABSOLUTE AUTO 0.63 K/uL (0.00-0.80); MONOCYTES PERCENT AUTO 6.7 % (0.0-8.0); NEUTROPHILS ABSOLUTE AUTO 5.23 K/uL (1.80-7.70); NEUTROPHILS PERCENT AUTO 55.8 % (41.0-71.0); PLATELET COUNT,PLT 289 K/uL (150-400); RED BLOOD CELL COUNT 5.75 M/uL (4.52-5.90); WHITE BLOOD CELL COUNT,WBC 9.38 K/uL (3.9-11.3)
[2024-05-17 16:46] LABS: A/G RATIO 1.3 (0.9-1.6); ALBUMIN 4.2 g/dL (3.4-5.0); BILIRUBIN TOTAL 0.4 mg/dL (0.2-1.0); CALCIUM 9.2 mg/dL (8.5-10.1); CARBON DIOXIDE,CO2 27.1 mmol/L (21.0-32.0); EST CRCL DRUG DOSING (CG) 111.01 mL/min; PROTEIN TOTAL,TP 7.4 g/dL (6.4-8.2)
[2024-05-17] MEDS: Pantoprazole 40 MG in Sodium Chloride 0.9% 10 ML IVPUSH ONE (16:53)
[2024-05-17] MEDS: Alum Hydrox/Mag Hydrox/Simeth 15 ML, Metoclopramide 5 MG, Lidocaine 2% 5 ML PO ONE (16:54)
[2024-05-17 20:10] VITALS: BP 125/78; PULSE 78
== END 2024-05-17 18:56 | disposition home or self-care (01) ==
LOC: MW.ED 15:48
DX: R07.9 Chest pain, unspecified (principal); I10 Essential (primary) hypertension; I25.2 Old myocardial infarction; E66.9 Obesity, unspecified; E78.00 Pure hypercholesterolemia, unspecified; Z87.19 Personal history of other diseases of the digestive system; Z95.5 Presence of coronary angioplasty implant and graft; Z79.82 Long term (current) use of aspirin; Z79.899 Other long term (current) drug therapy; Z88.6 Allergy status to analgesic agent; Z68.35 Body mass index [BMI] 35.0-35.9, adult
CPT/HCPCS: 36415; 71045; 80053; 83690; 83880; 84484; 85025; 93005; 96374; 99285; A9270; J2470

== ENCOUNTER 2024-12-20 10:00 | Emergency (ER) | payer BC ==
[2024-12-20 11:07] VITALS: BP 136/79; PULSE 62
== END 2024-12-20 11:06 | disposition home or self-care (01) ==
LOC: MW.ED 10:00
DX: M25.511 Pain in right shoulder (principal); I10 Essential (primary) hypertension; E78.00 Pure hypercholesterolemia, unspecified; I25.2 Old myocardial infarction; Z95.5 Presence of coronary angioplasty implant and graft; Z88.5 Allergy status to narcotic agent; Z79.82 Long term (current) use of aspirin; Z79.899 Other long term (current) drug therapy; Z79.02 Long term (current) use of antithrombotics/antiplatelets
CPT/HCPCS: 73030; 99283; A9270